=== PATIENT | male | born 1985 | race Caucasian/White ===

== ENCOUNTER 2017-05-22 02:44 | Inpatient (IN) | payer OTHER ==
[2017-05-22] MEDS ORDERED: Maalox 30 mL Cup ONE (03:06)
[2017-05-22] MEDS ORDERED: Maalox 30 mL Cup PO ONE (03:13)
[2017-05-22] MEDS ORDERED: Sodium Chloride 0.9% 1,000 ML IV ONE ×3 (03:13→05:13)
[2017-05-22 03:25] LABS: MANUAL DIFF REQUIRED? YES
[2017-05-22 03:27] LABS: URINE MICROSCOPIC INDICATED? YES; URINE SOURCE MIDSTREAM
[2017-05-22 03:29] LABS: URINE BILIRUBIN NEGATIVE (NEGATIVE); URINE BLOOD LARGE (NEGATIVE); URINE GLUCOSE (UA) NEGATIVE (NEGATIVE); URINE KETONE 15 mg/dL (NEGATIVE); URINE LEUKOCYTE ESTERASE NEGATIVE (NEGATIVE); URINE NITRATE NEGATIVE (NEGATIVE); URINE PH 6.5 (4.6 - 8.0); URINE PROTEIN NEGATIVE (NEGATIVE); URINE UROBILINOGEN 0.2 E.U./dL (0.2 - 1.0)
[2017-05-22 03:36] LABS: HEMATOCRIT 47.9 % (41.0-60); MEAN CELL VOLUME 85.4 fl (80-99); MEAN CORPUSCULAR HEMOGLOBIN 28.5 pg (26.0-30.0); MEAN CORPUSCULAR HGB CONC 33.4 pg (28.0-36.0); PLATELET COUNT 247 Th/cmm (150-400); RED BLOOD COUNT 5.61 Mil/cmm (4.30-5.70); RED CELL DISTRIBUTION WIDTH 13.8 % (11.5-20.0); WHITE BLOOD COUNT 11.9 Th/cmm (4.8-10.8)
[2017-05-22 03:37] LABS: URINE CLARITY CLEAR (CLEAR); URINE COLOR YELLOW
[2017-05-22 03:41] LABS: URINE WBC 0-2 /hpf (0-5)
[2017-05-22 03:42] LABS: URINE BACTERIA NONE SEEN /hpf (NONE SEEN); URINE EPITHELIAL CELLS RARE /lpf (FEW)
[2017-05-22 03:45] LABS: ALB/GLOB RATIO 1.2 (1.0-1.8); ALBUMIN 4.4 gm/dL (4.2-5.5); ALKALINE PHOSPHATASE 61 U/L (34-104); ANION GAP 14.4 (7.0-16.0); BUN - UREA NITROGEN 15 mg/dL (7-25); CALCIUM SERUM 9.6 mg/dL (8.6-10.3); CARBON DIOXIDE 25.2 mEq/L (21.0-31.0); CHLORIDE 102 mEq/L (98-107); CREATININE - SERUM 1.2 mg/dL (0.7-1.3); GFR AFRICAN-AMERICAN > 60.0 ml/min (>90); GFR NON AFRICAN-AMERICAN > 60.0 ml/min; GLUCOSE 131 mg/dL (70-105); LIPASE 19 U/L (11-82); POTASSIUM SERUM 3.6 mEq/L (3.5-5.1); SGOT 26 U/L (13-39); SGPT/ALT 49 U/L (7-52); SODIUM SERUM 138 mEq/L (136-145); TOTAL PROTEIN,SERUM 8.1 gm/dL (6.0-8.3)
[2017-05-22 03:56] LABS: BAND NEUTROPHILE 12 % (0-10); LYMPHOCYTE 3 % (20-50); NEUTROPHILS 84 % (40-80); PLATELET ESTIMATE ADEQUATE (NORMAL); TOTAL CELLS COUNTED 100
[2017-05-22] MEDS ORDERED: cefTRIAXone 1 GM in Sodium Chloride 0.9% 50 ML IV ONE (05:11)
--- NOTE | 2017-05-22 06:00 | ED Physician Chart ---
ED Chief Complaint/HPI - Patient Information Date Seen:: 05/22/17 Time Seen:: 03:00 Chief Complaint:: Abdominal Pain History of Present Illness:: onset since 5pm last night after eating at a restaurant of diffuse, crampy abdominal pain with N/V/D x 20= episodes and decreased urination, fever, and chills; pt denies trauma, H/As, S/T, neck pain, cough, C/P, SOB,or urinary s/s Allergies:: Allergies Allergy/AdvReac Type Severity Reaction Status Date / Time No Known Allergies Allergy Verified 05/22/17 03:08 Vitals:: Vital Signs - 8 hr 05/22/17 05/22/17 05/22/17 03:00 04:00 05:20 Temp 101.3 F 102.1 F 101.7 F HR 125 125 114 RR 18 17 18 BP 131/93 122/76 114/72 O2 Sat % 95 98 96 Historian:: Patient, Family Member Review:: Nurse's Note Reviewed ED Review of Systems - Review of Systems General/Constitutional: Fever, Chills, No weight loss, No weakness, No diaphoresis, No edema, No loss of appetite Skin: Skin lesions, No rash, No bruising Head: No headache, No light-headedness Eyes: No loss of vision, No pain, No diplopia ENT: No earache, No nasal drainage, No sore throat, No tinnitus Neck: No neck pain, No swelling, No thyromegaly, No stiffness, No mass noted Cardio Vascular: No chest pain, No palpitations, No PND, No orthopnea, No edema Pulmonary: No SOB, No cough, No sputum, No wheezing GI: Nausea, Vomiting, Diarrhea, Pain, No melena, No hematochezia, No constipation, No hematemesis G/U: No dysuria, No frequency, No hematuria, No nacturia Musculoskeletal: No bone or joint pain, No back pain, No muscle pain Endocrine: No polyuria, No polydipsia Psychiatric: No prior psych history, No depression, No anxiety, No suicidal ideation, No homicidal ideation, No auditory hallucination, No visual hallucination Hematopoietic: No bruising, No lymphadenopathy Allergic/Immuno: No urticaria, No angioedema Neurological: No syncope, No focal symptoms, No weakness, No paresthesia, No headache, No seizure, No dizziness, No confusion, No vertigo ED Past Medical History - Past Medical History Obtainable: Yes Past Medical History: Arthritis Family History: None Social History: Non Smoker, No Alcohol, No Drug Use, Surgical History: None Psychiatricy History: None Medication: Reviewed Family Medical History - Family Member Mother History Unknown: Yes ED Physical Exam - Physical Examination General/Constitutional: Awake, Well-developed, well-nourished, Alert, No distress, GCS 15, Non-toxic appearing, Ambulatory Head: Atraumatic Eyes: Lids, conjuctiva normal, PERRL, EOMI Skin: Nl inspection, No rash, No skin lesions, No ecchymosis, No lymphadenopathy Other Skin comments:: Poor Turgor with dry mucous membranes ENMT: External ears, nose nl, Nasal exam nl, Lips, teeth, gums nl Neck: Nontender, Full ROM w/o pain, No JVD, No nuchal rigidity, No bruit, No mass, No stridor Respiratory: Nl effort/Exclusion, Clear to Auscultation, No Wheeze/Rhonchi/Rales Cardio Vascular: RRR, No murmur, gallop, rubs, NL S1 S2, Carotid/Femoral/Distal pulses equal bilaterally GI: No organomegaly, No hernia, Normal BS's, Nondistended, No mass/bruits, No McBurney tenderness Other GI comments:: + diffuse tenderness : No CVA tenderness Extremities: No tenderness or effusion, Full ROM, normal strength in all extremities, No edema, Normal digits & nails Neuro/Psych: Alert/oriented, DTR's symmetric, Normal sensory exam, Normal motor strength, Judgement/insight normal, Mood normal, Normal gait, No focal deficits Misc: Normal back, No paraspinal tenderness ED Labs/Radiology/EKG Results - Lab Results Results: Laboratory Tests 05/22/17 05/22/17 05/22/17 03:15 03:15 03:15 WBC 11.9 H RBC 5.61 Hgb 16.0 Hct 47.9 MCV 85.4 MCH 28.5 MCHC Differential 33.4 RDW 13.8 Plt Count 247 MPV 9.0 Band Neutrophils % 12 H Neutrophils (Manual) 84 H Lymphocytes 3 L Platelet Estimate ADEQUATE Sodium 138 Potassium 3.6 Chloride 102 Carbon Dioxide 25.2 Anion Gap 14.4 BUN 15 Creatinine 1.2 Est GFR ( Amer) > 60.0 Est GFR (Non-Af Amer) > 60.0 BUN/Creatinine Ratio 12.5 Glucose 131 H Whole Bld Lactic Acid Uric Acid 10.2 H Calcium 9.6 Total Bilirubin 1.0 AST 26 ALT 49 Alkaline Phosphatase 61 Total Protein 8.1 Albumin 4.4 Globulin 3.7 Albumin/Globulin Ratio 1.2 Lipase 19 Urine Source Urine Color Urine Clarity Urine pH Ur Specific [place] Urine Protein Urine Glucose (UA) Urine Ketones Urine Blood Urine Nitrate Urine Bilirubin Urine Urobilinogen Ur Leukocyte Esterase Urine RBC Urine WBC Ur Epithelial Cells Urine Bacteria 05/22/17 05/22/17 03:15 03:20 WBC RBC Hgb Hct MCV MCH MCHC Differential RDW Plt Count MPV Band Neutrophils % Neutrophils (Manual) Lymphocytes Platelet Estimate Sodium Potassium Chloride Carbon Dioxide Anion Gap BUN Creatinine Est GFR ( Amer) Est GFR (Non-Af Amer) BUN/Creatinine Ratio Glucose Whole Bld Lactic Acid 3.04 H* Uric Acid Calcium Total Bilirubin AST ALT Alkaline Phosphatase Total Protein Albumin Globulin Albumin/Globulin Ratio Lipase Urine Source [place] Urine Color YELLOW Urine Clarity CLEAR Urine pH 6.5 Ur Specific [place] 1.010 Urine Protein NEGATIVE Urine Glucose (UA) NEGATIVE Urine Ketones 15 H Urine Blood LARGE H Urine Nitrate NEGATIVE Urine Bilirubin NEGATIVE Urine Urobilinogen 0.2 Ur Leukocyte Esterase NEGATIVE Urine RBC 5-10 H Urine WBC 0-2 Ur Epithelial Cells RARE Urine Bacteria NONE SEEN Comments:: WBC: 11.9; LA: 3.04; UA: 10.2;; U/A: + Blood and RBCs; - Radiology Results Comments:: + Infectious, inflammatory Gastroenteritis - EKG Interpretations EKG Time:: 05:32 Rate & Rhythm: 107; ST Comments:: non-specific st-t changes ED Septic Shock - . Is Septic Shock (SBP<90, OR Lactate>4 mmol\L) present?: No - <6hrs of presentation: Vital Signs: Vital Signs - 8 hr 05/22/17 05/22/17 05/22/17 03:00 04:00 05:20 Temp 101.3 F 102.1 F 101.7 F HR 125 125 114 RR 18 17 18 BP 131/93 122/76 114/72 O2 Sat % 95 98 96 ED Reassessment (Disposition) - Reassessment Reassessment Condition:: Improved - Diagnosis Diagnosis:: Acute Gastroenteritis; Gastritis; Abdominal Pain; N/V/D; Dehydration; Hematuria ; Leukocytosis; Sepsis; Tachycardia - Aftercare/Follow up Instructions Aftercare/Follow-Up Instructions:: Counseled pt regarding lab results/diagnosis & need follow up, Counseled pt & family regarding lab results/diagnosis & need follow up - Patient Disposition Discharge/Transfer:: Acute Care w/in this hosp Accepting Physician:: Dr. Dalal Time Called:: 0500 Time Responded:: 05:00 Admitted to:: Telemetry Spoke to:: Dr. Dalal Admitting Medical Physician:: Dr. Dalal Condition at Disposition:: Stable, Improved
[2017-05-22] MEDS ORDERED: Piperacillin Sodium/Tazobact 3.375 gm Vial IV ONE (06:45)
[2017-05-22] MEDS ORDERED: HYDROmorphone 1 mg/mL 1mL Syr IVP PRN (07:35)
[2017-05-22] MEDS ORDERED: HYDROmorphone 1 mg/mL 1mL Syr ONE (07:46)
[2017-05-22] MEDS: D5-0.9%NS 1,000 ML IV SCH ×2 (08:16→20:58)
--- NOTE | 2017-05-22 09:09 | Diagnostic Imaging Report ---
CT abdomen and pelvis without intravenous contrast Indication: Abdominal pain, vomiting, diarrhea Comparison: None, Technique: Axial images were obtained from the lung bases to the bilateral proximal femurs without IV contrast. Coronal reconstructions were made. total DLP: 746, CTDI11.8 FINDINGS: There is a 3 mm calcified granuloma of the right lung base. Hypoventilatory and atelectatic changes of the lungs are noted. Evaluation of the solid organs is limited due to lack of IV contrast. There is fatty infiltration of the liver. No evidence of focal lesions. No focal splenic lesions. Mildly prominent spleen is noted. The no focal pancreatic lesions. Slight haziness of the pancreatic margins are noted. Borderline prominent peripancreatic and periportal lymph nodes are noted. No focal adrenal lesions. No hydronephrosis or nephrolithiasis. Multiple fluid-filled loops of small and large bowel are noted. The appendix is not visualized. The osseous structures demonstrate no acute abnormalities. Mild degenerative changes of the spine are noted. IMPRESSION: Multiple fluid filled loops of small and large bowel which may be due to inflammatory process/enteritis. Clinical correlation recommended. Slight haziness along the pancreatic margins. Inflammatory process cannot be excluded. Please correlate with clinical findings and laboratory values. Borderline prominent periportal and peripancreatic lymph nodes are noted, nonspecific, however correlation with old exams and short-term follow-up surveillance is recommended. Diffuse fatty infiltration of the liver. 3 mm calcified granuloma right lung base.
[2017-05-22] MEDS: Pantoprazole 40 mg EC Tab PO SCH (09:14)
[2017-05-22] MEDS ORDERED: Morphine Sulfate 4 mg/mL 1mL Syr IVP PRN (11:07)
[2017-05-22] MEDS ORDERED: Probiotic Screen MC PRN (12:00)
[2017-05-22] MEDS: metroNIDAZOLE 500mg/NS 100mL 500 MG/100 ML BAG IV SCH ×2 (12:09→20:56)
--- NOTE | 2017-05-22 15:32 | History & Physical ---
ADMIT DATE: 05/22/2017 CHIEF COMPLAINT: The patient came in because of nausea and vomiting. HISTORY OF PRESENT ILLNESS: This is a 31-year-old Samoan with past medical history, possibly gout, who came in because of persistent nausea and vomiting. One day prior to admission, he ate ____ for breakfast. He continued to eat some leftover for lunch. A few hours prior to admission, he felt nauseous. Then he started vomiting an hour later. This was associated with watery diarrhea. His vomiting persisted. He could not take anything orally, both solids and liquids. He felt weak, tired with easy fatigability. He has noted a decrease in his urinary output. He then proceeded to the Emergency Room. His temperature was 101.3 with a white count of 11.9 and lactic acid of 3.04. CT scan of the abdomen revealed inflammatory/enteritis. He denied any hematemesis, blood/mucus in the stool. PAST MEDICAL HISTORY: 1. Questionable history of gout. 2. Renal calculi. CURRENT MEDICATIONS: Acetaminophen, metronidazole, morphine sulfate, ondansetron, pantoprazole, temazepam, Zosyn. ALLERGIES: No known drug allergies. SOCIAL HISTORY: No history of alcohol or tobacco use. He is currently self-employed. FAMILY HISTORY: Father had a history of colon cancer. On the mother's side, there is history of diabetes, hypertension. REVIEW OF SYSTEMS: GENERAL: He did complain of progressive weakness, appetite had declined due to his nausea and vomiting and diarrhea. He did have fever. HEENT: No mention of headaches, no dizziness. CARDIORESPIRATORY: No history of hypertension. No shortness of breath, chest pain, palpitations, diaphoresis, cough. GASTROINTESTINAL: He came in because of persistent nausea and vomiting as well as watery diarrhea. This was associated with some abdominal cramping. However, he does not have any history of constipation. GENITOURINARY: History of kidney stones in the past, but no dysuria, no hematuria. MUSCULOSKELETAL: No arthralgias. ENDOCRINE: No history of diabetes, no thyroid abnormalities. NEUROPSYCHIATRIC: No syncopal episode or seizure activity. PHYSICAL EXAMINATION: GENERAL: The patient is alert, verbal, comfortable. VITAL SIGNS: His blood pressure is 118/81, pulse is tachycardic at 115, temperature 99.4 degrees. SKIN: Poor turgor, warm, no rash, no jaundice appreciated. HEENT: Head normocephalic, atraumatic. Eyes: Extraocular muscles intact. Pupils equal, round, reactive to light and accommodates. Anicteric sclerae. Pale conjunctivae. Nose, midline nasal septum. Mouth: Dry mucosa with adequate dentition. NECK: Supple, no adenopathy, no thyromegaly, no bruits. Trachea palpated in the midline. CHEST AND CVS: S1, S2. No rub, murmur or gallop appreciated. Point of maximal impulse fifth intercostal space, left midclavicular line. No abdominal or femoral bruits appreciated. LUNGS: Equal expansion. No use of accessory muscles. No supraclavicular retractions. Decreased breath sounds, clear to auscultation without any wheeze. ABDOMEN: Globular, soft, tympanitic, tympanitic sounds, no tenderness on palpation, remains soft. MUSCULOSKELETAL: No presence of effusions in his joints with adequate range of motion. EXTREMITIES: No evidence of any edema, cyanosis, clubbing with palpable femoral, popliteal and dorsalis pedis pulses. NEUROLOGIC: The patient is alert, verbal, motor is 5/5. Cranial nerves 2-12 intact. Sensory intact. IMPRESSION: 1. Intractable nausea and vomiting with watery diarrhea, possible acute inflammatory/infectious (viral/bacterial) gastroenteritis. 2. NAFLD. 3. Incidental finding of right lung granuloma. 4. History of renal calculi. 5. Dehydration. PLAN: 1. Continue with IV fluids. 2. Antibiotics. 3. Blood culture x2. 4. There is a stool for OB as well as white count. 5. GI consult. 6. ID consult. 7. Stool workup. JOB# [id number]
--- NOTE | 2017-05-22 16:59 | Consultation ---
Consult Note - Consult Note Service Date: 05/22/17 Referring Physician: Maryanne Dalal Consult Note: PHYSICIAN Consultation Note: Date of Admission: 05/22/17 Purpose of Consultation: Gastroenteritis. Chief Complaint: Patient SHOAIB SINGH was admitted to location Intensive Care Unit with SEPSIS,INFECTIOUS/INFLAMMATORY ENTERITIS. History of Present Illness: 31-year-old male with history of gout taking colchicine, had developed nausea, vomiting followed by watery diarrhea 12 hrs after eating [place] food at home in morning. The food was cooked night before and frozen refrigerator. He warmed the food. On initial evaluation, his temperature was 101.3 degree F and WBC count was 11k. Stool for WBC and shiga toxin came negative. Other stool studies are pending. He was also tachycardic. He was admitted to the ICU and ID consult was called for antibiotic management. Overall, he is improving. Past Medical History: Gout, Obesity. Allergies Allergy/AdvReac Type Severity Reaction Status Date / Time No Known Allergies Allergy Verified 05/22/17 03:08 Vital Signs Temp 99.2 F 05/22/17 12:00 Pulse 115 05/22/17 12:00 Resp 21 05/22/17 12:00 BP 125/87 05/22/17 12:00 Pulse Ox 95 05/22/17 12:00 Intake & Output 05/21/17 05/22/17 05/22/17 18:59 06:59 18:59 Intake Total 200 200 Balance 200 200 Weight (lbs) 113.398 kg Intake: Intake, IV Amount 100 200 Piperacillin Sodium/ 100 Tazobact 2.25 gm In Sodium Chloride 0.9% 50 ml @ 100 mls/hr IV Q8HR [facility] Rx#:[id number] cefTRIAXone 1 gm In 50 Sodium Chloride 0.9% 50 ml @ 100 mls/hr IV X1 ONE Rx#:[id number] metroNIDAZOLE 500mg/NS 100 100mL 500 mg In 100 ml @ 100 mls/hr IV Q8HR [facility] Rx #:[id number] Oral 100 Laboratory Results - last 24 hr 05/22/17 05/22/17 06:00 07:15 Whole Bld Lactic Acid 2.65 H* Stool Leukocyte NO WBC SEEN Home Medication Medication Instructions Recorded Type NK [No Home Meds] 05/22/17 History Current Medications Generic Name Dose Route Start Last Admin Trade Name Freq PRN Reason Stop Dose Admin Acetaminophen 650 mg 05/22/17 06:04 Tylenol PO 07/21/17 06:14 Q4H PRN Pain or Fever >101 Dextrose/Sodium Chloride 1,000 mls @ 125 mls/hr 05/22/17 06:15 05/22/17 08:16 D5-0.9%Ns IV 07/21/17 06:14 125 mls/hr .Q8H DYLAN Administration Metronidazole 500 mg in 100 mls @ 100 mls/hr 05/22/17 13:00 05/22/17 13:10 Flagyl IV 07/21/17 12:59 Infused Q8HR DYLAN Infusion Piperacillin Sod/Tazobactam 50 mls @ 100 mls/hr 05/22/17 13:00 05/22/17 14:10 Sod 2.25 gm/ Sodium Chloride IV 07/21/17 12:59 Infused Q8HR DYLAN Infusion Lactobacillus Rhamnosus 1 each 05/23/17 09:00 Culturelle 15b PO 07/22/17 08:59 DAILY DYLAN Miscellaneous 1 ea 05/22/17 12:00 Probiotic Screen MC 07/21/17 11:59 PRN PRN PROTOCOL Morphine Sulfate 2 mg 05/22/17 11:07 Morphine IVP 07/21/17 11:06 Q3HR PRN Severe Pain Ondansetron HCl 4 mg 05/22/17 06:04 Zofran IV 07/21/17 06:14 Q4H PRN Nausea Pantoprazole Sodium 40 mg 05/22/17 09:00 05/22/17 09:14 Protonix PO 07/21/17 08:59 40 mg DAILY DYLAN Administration Temazepam 15 mg 05/22/17 06:04 Restoril PO 07/21/17 06:03 HS PRN Insomnia Protocol Review of Systems: A 12 point ROS was reviewed with the pertinent positive and negatives noted in the HPI. Social History Lives at home, no history of smoking, alcohol or drug use. Family Medical History None. Physical Exam: General: Comfortable, not in acute distress, WN WD BMI 41. HEENT: Head NC NT. Oral cavity: moist and pink, Eyes: no pallor no icterus. pupil PERRLA,. Neck: Supple, no JVD, no Carotid bruit. Cardio: S1 and S2 WNL, no murmur, no gallop; Respiratory: Vesicular breath sounds, no crackles, no wheezing. Abdominal: Soft NT ND BS present. Genital/Urinary: deferred Extremities: NCCE. paulse are palpable in all 4 limbs. Neurological: Alert awake oriented times 3, no focal neurodeficit. Assessment: 1. Fever 2/2 gastro enteritis. 2. Gastroenteritis? viral versu bacterial. 3. Diarrhea. 4. H/o gout. Plan: Change antibiotic zosyn to levaquin po, if he tolerates soft food may change flagyl to po. May consider dc home in next one or two days if remains afebrile on oral levaquin po for total 10 days. Thank you, Dr Dalal for involving me in taking care of Me Cirilo. DW patient and RN. Signed, Lonnie Sanchez M.D. 05/22/[id number]
--- NOTE | 2017-05-22 17:08 | Consultation ---
DATE OF CONSULTATION: 05/22/2017 INPATIENT GI CONSULTATION CONSULTING PHYSICIAN: Dr. Dalal. REASON FOR CONSULTATION: Enteritis, nausea and vomiting, diarrhea. HISTORY OF PRESENT ILLNESS: The patient is a 31-year-old male with past medical history significant for gout, who comes into the hospital with sudden onset nausea, vomiting, and diarrhea since last night. The patient reports having [place]ian food, possibly clams in the morning and that he also had some ham in the midday. His symptoms began 06:00 p.m. all of a sudden and consisted of massive amounts of diarrhea, nausea, and vomiting. He was having such severe symptoms that were unrelenting he decided to report to the ER for this. Since his admission to the hospital, he has since had resolution in his nausea, but he is still having some diarrhea. He does not report any abdominal pain at this time. A preliminary CT report shows enteritis and fluid-filled loops of bowel, but no other pathology. At the current time, he is starting to feel improved. PAST MEDICAL HISTORY: Gout. PAST SURGICAL HISTORY: The patient denies any previous abdominal surgeries. FAMILY HISTORY: Noncontributory. SOCIAL HISTORY: The patient does not smoke or drink. ALLERGIES: No known drug allergies. REVIEW OF SYSTEMS: A 12-point review of systems was performed with the patient and is negative other than the pertinent positives mentioned with the history of present illness. CURRENT MEDICATIONS: Include Tylenol, hydromorphone as needed, Flagyl, ondansetron, Protonix, Zosyn, Restoril. PHYSICAL EXAMINATION: VITAL SIGNS: Blood pressure is 114/72, pulse 105 beats per minute, temperature 101.7, respiratory rate is 16, and oxygenation 97%. GENERAL: This patient is lying flat in bed. He is alert and oriented x 3. He appears in mild distress. HEAD, EARS, EYES, NOSE AND THROAT: Normocephalic and atraumatic appearing head. Pupils are equal and reactive to light. Extraocular muscles are intact with moist mucous membranes. NECK: Supple. No JVD, thyromegaly, or lymphadenopathy. CHEST: Clear to auscultation bilaterally. CARDIOVASCULAR: S1 and S2 are present, tachycardic. ABDOMEN: Obese, soft, nontender to palpation. No guarding or rebound. No distention. EXTREMITIES: Nonpitting edema is noted bilaterally. Pulses are present. SKIN: No obvious jaundice or cyanosis. LABORATORY DATA: White blood cell count is 11.9, hemoglobin is 16.0, and platelets are estimated to be adequate. Sodium 138, BUN 15, creatinine 1.2. Lactic acid was 3.04 on admission, now 2.65. Total bilirubin 1, AST 26, ALT 49, lipase 19. IMAGING: Preliminary abdominal CT shows enteritis of the small bowel as well as steatosis of the liver. IMPRESSION: This is a 31-year-old male with past medical history significant for gout, who is admitted to the hospital with sudden onset nausea, vomiting, and diarrhea after eating [place] food, possibly clams. 1. Enteritis. 2. Nausea and vomiting. 3. Diarrhea. 4. Leukocytosis. 5. Lactic acidosis. DISCUSSION: Most likely, this is an infectious enteritis, possibly toxin mediated from eating food contaminated with bacteria; additionally, this could be a viral enteritis as well. Less likely are inflammatory bowel disease or any sort of GI malignancy at this point. RECOMMENDATIONS: 1. Continue with fluid hydration. We can give the patient clears if he is thirsty and wants to try eating. 2. Agree with antibiotics. The patient will need a 7-day course total. 3. We will follow up the stool samples that have been collected and make sure that he also has ordered ova and parasites as well as Vibrio exam if this is available here. 4. Advance his diet as tolerated to full liquids today and if he is doing very well with this, we can consider soft foods. Thank you for allowing me to participate in the care of this patient. Please call with any further questions. [facility]# [id number]
[2017-05-23] MEDS: metroNIDAZOLE 500mg/NS 100mL 500 MG/100 ML BAG IV SCH ×3 (05:20→21:02)
[2017-05-23] MEDS: Pantoprazole 40 mg EC Tab PO SCH (09:13)
[2017-05-23] MEDS: Lactobacillus Rhamnosus GG 15 Billion CFU CAP.SPRINK PO SCH (09:13)
--- NOTE | 2017-05-23 10:36 | GI Progress Note ---
Subjective - Review of Systems Service Date: 05/23/17 Subjective: Diarreha is less, nausea is less but still present Objective - Results Result Diagrams: 05/22/17 03:15 05/22/17 03:15 Recent Labs: Laboratory Last Values WBC 11.9 Th/cmm (4.8-10.8) H 05/22/17 03:15 RBC 5.61 Mil/cmm (4.30-5.70) 05/22/17 03:15 Hgb 16.0 gm/dL (12-16) 05/22/17 03:15 Hct 47.9 % (41.0-60) 05/22/17 03:15 MCV 85.4 fl (80-99) 05/22/17 03:15 MCH 28.5 pg (26.0-30.0) 05/22/17 03:15 MCHC Differential 33.4 pg (28.0-36.0) 05/22/17 03:15 RDW 13.8 % (11.5-20.0) 05/22/17 03:15 Plt Count 247 Th/cmm (150-400) 05/22/17 03:15 MPV 9.0 fl 05/22/17 03:15 Band Neutrophils % 12 % (0-10) H 05/22/17 03:15 Neutrophils (Manual) 84 % (40-80) H 05/22/17 03:15 Lymphocytes 3 % (20-50) L 05/22/17 03:15 Platelet Estimate ADEQUATE (NORMAL) 05/22/17 03:15 Sodium 138 mEq/L (136-145) 05/22/17 03:15 Potassium 3.6 mEq/L (3.5-5.1) 05/22/17 03:15 Chloride 102 mEq/L (98-107) 05/22/17 03:15 Carbon Dioxide 25.2 mEq/L (21.0-31.0) 05/22/17 03:15 Anion Gap 14.4 (7.0-16.0) 05/22/17 03:15 BUN 15 mg/dL (7-25) 05/22/17 03:15 Creatinine 1.2 mg/dL (0.7-1.3) 05/22/17 03:15 Est GFR ( Amer) > 60.0 ml/min (>90) 05/22/17 03:15 Est GFR (Non-Af Amer) > 60.0 ml/min 05/22/17 03:15 BUN/Creatinine Ratio 12.5 05/22/17 03:15 Glucose 131 mg/dL (70-105) H 05/22/17 03:15 Whole Bld Lactic Acid 2.65 mmol/L (0.60-1.99) H* 05/22/17 06:00 Uric Acid 10.2 mg/dL (4.4-7.6) H 05/22/17 03:15 Calcium 9.6 mg/dL (8.6-10.3) 05/22/17 03:15 Total Bilirubin 1.0 mg/dL (0.3-1.0) 05/22/17 03:15 AST 26 U/L (13-39) 05/22/17 03:15 ALT 49 U/L (7-52) 05/22/17 03:15 Alkaline Phosphatase 61 U/L (34-104) 05/22/17 03:15 Total Protein 8.1 gm/dL (6.0-8.3) 05/22/17 03:15 Albumin 4.4 gm/dL (4.2-5.5) 05/22/17 03:15 Globulin 3.7 gm/dL 05/22/17 03:15 Albumin/Globulin Ratio 1.2 (1.0-1.8) 05/22/17 03:15 Lipase 19 U/L (11-82) 05/22/17 03:15 Urine Source MIDSTREAM 05/22/17 03:20 Urine Color YELLOW 05/22/17 03:20 Urine Clarity CLEAR (CLEAR) 05/22/17 03:20 Urine pH 6.5 (4.6 - 8.0) 05/22/17 03:20 Ur Specific [place] 1.010 (1.005-1.030) 05/22/17 03:20 Urine Protein NEGATIVE mg/dL (NEGATIVE) 05/22/17 03:20 Urine Glucose (UA) NEGATIVE mg/dL (NEGATIVE) 05/22/17 03:20 Urine Ketones 15 mg/dL (NEGATIVE) H 05/22/17 03:20 Urine Blood LARGE (NEGATIVE) H 05/22/17 03:20 Urine Nitrate NEGATIVE (NEGATIVE) 05/22/17 03:20 Urine Bilirubin NEGATIVE (NEGATIVE) 05/22/17 03:20 Urine Urobilinogen 0.2 E.U./dL (0.2 - 1.0) 05/22/17 03:20 Ur Leukocyte Esterase NEGATIVE (NEGATIVE) 05/22/17 03:20 Urine RBC 5-10 /hpf (0-5) H 05/22/17 03:20 Urine WBC 0-2 /hpf (0-5) 05/22/17 03:20 Ur Epithelial Cells RARE /lpf (FEW) 05/22/17 03:20 Urine Bacteria NONE SEEN /hpf (NONE SEEN) 05/22/17 03:20 Stool Leukocyte NO WBC SEEN 05/22/17 07:15 - Physical Exam Vitals and I&O: Vital Signs Temp 98.2 F 05/23/17 04:00 Pulse 93 05/23/17 04:00 Resp 16 05/23/17 04:00 BP 106/67 05/23/17 04:00 Pulse Ox 94 05/23/17 04:00 Intake & Output 05/22/17 05/23/17 05/23/17 18:59 06:59 18:59 Intake Total 1200 1660 Output Total 1100 Balance 1200 560 Weight (lbs) 114.305 kg Intake: Intake, IV Amount 1200 100 D5-0.9%Ns 1,000 ml @ 125 1000 mls/hr IV .Q8H [facility] Rx#: [id number] Piperacillin Sodium/ 100 Tazobact 2.25 gm In Sodium Chloride 0.9% 50 ml @ 100 mls/hr IV Q8HR [facility] Rx#:[id number] metroNIDAZOLE 500mg/NS 100 100 100mL 500 mg In 100 ml @ 100 mls/hr IV Q8HR [facility] Rx #:[id number] Oral 1560 Output: Urine 1100 Other: # Voids 2 # Bowel Movements 2 Stool Characteristics Liquid Liquid Brown Brown Active Medications: Current Medications Acetaminophen (Tylenol) 650 mg PO Q4H PRN PRN Reason: Pain or Fever >101 Stop: 07/21/17 06:14 Dextrose/Sodium Chloride (D5-0.9%Ns) 1,000 mls @ 125 mls/hr IV .Q8H [facility] Stop: 07/21/17 06:14 Last Admin: 05/22/17 20:58 Dose: 125 mls/hr Metronidazole (Flagyl) 500 mg in 100 mls @ 100 mls/hr IV Q8HR [facility] Stop: 07/21/17 12:59 Last Infusion: 05/22/17 21:59 Dose: Infused Lactobacillus Rhamnosus (Culturelle 15b) 1 each PO DAILY [facility] Stop: 07/22/17 08:59 Last Admin: 05/23/17 09:13 Dose: 1 each Levofloxacin (Levaquin) 500 mg PO DAILY [facility] Stop: 07/22/17 08:59 Last Admin: 05/23/17 09:12 Dose: 500 mg Miscellaneous (Probiotic Screen) 1 ea [facility] PRN PRN PRN Reason: PROTOCOL Stop: 07/21/17 11:59 Morphine Sulfate (Morphine) 2 mg IVP Q3HR PRN PRN Reason: Severe Pain Stop: 07/21/17 11:06 Last Admin: 05/22/17 20:53 Dose: 2 mg Ondansetron HCl (Zofran) 4 mg IV Q4H PRN PRN Reason: Nausea Stop: 07/21/17 06:14 Last Admin: 05/22/17 20:54 Dose: 4 mg Pantoprazole Sodium (Protonix) 40 mg PO DAILY [facility] Stop: 07/21/17 08:59 Last Admin: 05/23/17 09:13 Dose: 40 mg Temazepam (Restoril) 15 mg PO HS PRN; Protocol PRN Reason: Insomnia Stop: 07/21/17 06:03 General: Alert, Oriented x3 Lungs: Clear to auscultation Abdomen: Bowel sounds, Soft, no Tender, no Hepatomegaly, no Distended, no Rebound, no Mass, no Guarding Assessment/Plan - Assessment Assessment: # Enteritis # Nausea/vomiting # Diarrhea Likely infectious source, slowly improving symptomatically. Plan: - cont abx, will need 7-10 day course - advance diet to soft today as tolerated - f/u stool cultures, shiga is negative thus far
[2017-05-23 11:36] LABS: % EOSINOPHILS 3.1 % (0.0-5.0); RED CELL DISTRIBUTION WIDTH 13.7 % (11.5-20.0)
[2017-05-23 11:38] LABS: % BASOPHILS 0.1 % (0.0-2.0); % LYMPHOCYTES 21.5 % (20.0-50.0); % MONOCYTES 10.3 % (2.0-10.0); EOSINOPHILE ABSOLUTE 0.2 Th/cmm (0.1-0.4); HEMOGLOBIN 14.2 gm/dL (12-16); LYMPHOCYTE ABSOLUTE 1.5 Th/cmm (1.5-3.0); MEAN CELL VOLUME 85.9 fl (80-99); MEAN CORPUSCULAR HGB CONC 33.7 pg (28.0-36.0); MEAN PLATELET VOLUME 8.4 fl; MONOCYTE ABSOLUTE 0.7 Th/cmm (0.3-1.0); NEUTROPHILE ABSOLUTE 4.5 Th/cmm (1.8-8.0); PLATELET COUNT 218 Th/cmm (150-400); RED BLOOD COUNT 4.89 Mil/cmm (4.30-5.70); WHITE BLOOD COUNT 6.9 Th/cmm (4.8-10.8)
[2017-05-23 11:52] LABS: ALB/GLOB RATIO 1.1 (1.0-1.8); ALBUMIN 3.7 gm/dL (4.2-5.5); ALKALINE PHOSPHATASE 45 U/L (34-104); ANION GAP 10.3 (7.0-16.0); BILIRUBIN,TOTAL 0.6 mg/dL (0.3-1.0); BUN - UREA NITROGEN 5 mg/dL (7-25); CALCIUM SERUM 8.4 mg/dL (8.6-10.3); CARBON DIOXIDE 24.5 mEq/L (21.0-31.0); CHLORIDE 102 mEq/L (98-107); GFR AFRICAN-AMERICAN > 60.0 ml/min (>90); GFR NON AFRICAN-AMERICAN > 60.0 ml/min; GLUCOSE 93 mg/dL (70-105); SGOT 27 U/L (13-39); SGPT/ALT 37 U/L (7-52); SODIUM SERUM 134 mEq/L (136-145); TOTAL PROTEIN,SERUM 7.1 gm/dL (6.0-8.3)
[2017-05-23 11:57] LABS: POTASSIUM SERUM 2.8 mEq/L (3.5-5.1)
[2017-05-23] MEDS ORDERED: Potassium Chloride 20 mEq ER Tab PO ONE ×2 (14:40→18:40)
--- NOTE | 2017-05-23 15:10 | Infectious Disease Prog Note ---
Infectious Disease Subjective - Review of Systems Service Date: 05/23/17 Subjective: There is no new change, no fever. Watery BM x1. Infectious Disease Objective - Results Result Diagrams: 05/23/17 11:29 05/23/17 11:29 Recent Labs: Laboratory Last Values WBC 6.9 Th/cmm (4.8-10.8) 05/23/17 11:29 RBC 4.89 Mil/cmm (4.30-5.70) 05/23/17 11:29 Hgb 14.2 gm/dL (12-16) 05/23/17 11:29 Hct 42.0 % (41.0-60) 05/23/17 11:29 MCV 85.9 fl (80-99) 05/23/17 11: MCH 29.0 pg (26.0-30.0) 05/23/17 11: MCHC Differential 33.7 pg (28.0-36.0) 05/23/17 11:29 RDW 13.7 % (11.5-20.0) 05/23/17 11:29 Plt Count 218 Th/cmm (150-400) 05/23/17 11:29 MPV 8.4 fl 05/23/17 11:29 Neutrophils % 65.0 % (40.0-80.0) 05/23/17 11:29 Band Neutrophils % 12 % (0-10) H 05/22/17 03:15 Lymphocytes % 21.5 % (20.0-50.0) 05/23/17 11: Monocytes % 10.3 % (2.0-10.0) H 05/23/17 11:29 Eosinophils % 3.1 % (0.0-5.0) 05/23/17 11:29 Basophils % 0.1 % (0.0-2.0) 05/23/17 11:29 Neutrophils (Manual) 84 % (40-80) H 05/22/17 03:15 Lymphocytes 3 % (20-50) L 05/22/17 03:15 Platelet Estimate ADEQUATE (NORMAL) 05/22/17 03:15 Sodium 134 mEq/L (136-145) L 05/23/17 11:29 Potassium 2.8 mEq/L (3.5-5.1) L* 05/23/17 11:29 Chloride 102 mEq/L (98-107) 05/23/17 11:29 Carbon Dioxide 24.5 mEq/L (21.0-31.0) 05/23/17 11:29 Anion Gap 10.3 (7.0-16.0) 05/23/17 11:29 BUN 5 mg/dL (7-25) L 05/23/17 11:29 Creatinine 1.0 mg/dL (0.7-1.3) 05/23/17 11:29 Est GFR ( Amer) > 60.0 ml/min (>90) 05/23/17 11:29 Est GFR (Non-Af Amer) > 60.0 ml/min 05/23/17 11:29 BUN/Creatinine Ratio 5.0 05/23/17 11: Glucose 93 mg/dL (70-105) 05/23/17 11:29 Whole Bld Lactic Acid 2.65 mmol/L (0.60-1.99) H* 05/22/17 06:00 Uric Acid 10.2 mg/dL (4.4-7.6) H 05/22/17 03:15 Calcium 8.4 mg/dL (8.6-10.3) L 05/23/17 11:29 Total Bilirubin 0.6 mg/dL (0.3-1.0) 05/23/17 11:29 AST 27 U/L (13-39) 05/23/17 11:29 ALT 37 U/L (7-52) 05/23/17 11:29 Alkaline Phosphatase 45 U/L (34-104) 05/23/17 11:29 Total Protein 7.1 gm/dL (6.0-8.3) 05/23/17 11:29 Albumin 3.7 gm/dL (4.2-5.5) L 05/23/17 11:29 Globulin 3.4 gm/dL 05/23/17 11:29 Albumin/Globulin Ratio 1.1 (1.0-1.8) 05/23/17 11:29 Lipase 19 U/L (11-82) 05/22/17 03:15 Urine Source MIDSTREAM 05/22/17 03:20 Urine Color YELLOW 05/22/17 03:20 Urine Clarity CLEAR (CLEAR) 05/22/17 03:20 Urine pH 6.5 (4.6 - 8.0) 05/22/17 03:20 Ur Specific [place] 1.010 (1.005-1.030) 05/22/17 03:20 Urine Protein NEGATIVE mg/dL (NEGATIVE) 05/22/17 03:20 Urine Glucose (UA) NEGATIVE mg/dL (NEGATIVE) 05/22/17 03:20 Urine Ketones 15 mg/dL (NEGATIVE) H 05/22/17 03:20 Urine Blood LARGE (NEGATIVE) H 05/22/17 03:20 Urine Nitrate NEGATIVE (NEGATIVE) 05/22/17 03:20 Urine Bilirubin NEGATIVE (NEGATIVE) 05/22/17 03:20 Urine Urobilinogen 0.2 E.U./dL (0.2 - 1.0) 05/22/17 03:20 Ur Leukocyte Esterase NEGATIVE (NEGATIVE) 05/22/17 03:20 Urine RBC 5-10 /hpf (0-5) H 05/22/17 03:20 Urine WBC 0-2 /hpf (0-5) 05/22/17 03:20 Ur Epithelial Cells RARE /lpf (FEW) 05/22/17 03:20 Urine Bacteria NONE SEEN /hpf (NONE SEEN) 05/22/17 03:20 Stool Leukocyte NO WBC SEEN 05/22/17 07:15 - Physical Exam Vitals and I&O: Vital Signs Temp 96.9 F 05/23/17 11:57 Pulse 93 05/23/17 11:57 Resp 17 05/23/17 12:00 BP 136/88 05/23/17 11:57 Pulse Ox 95 05/23/17 11:57 Intake & Output 05/22/17 05/23/17 05/23/17 18:59 06:59 18:59 Intake Total 1200 1760 100 Output Total 1100 Balance 1200 660 100 Weight (lbs) 114.305 kg Intake: Intake, IV Amount 1200 200 100 D5-0.9%Ns 1,000 ml @ 125 1000 mls/hr IV .Q8H [facility] Rx#: [id number] Piperacillin Sodium/ 100 Tazobact 2.25 gm In Sodium Chloride 0.9% 50 ml @ 100 mls/hr IV Q8HR [facility] Rx#:[id number] metroNIDAZOLE 500mg/NS 100 200 100 100mL 500 mg In 100 ml @ 100 mls/hr IV Q8HR [facility] Rx #:[id number] Oral 1560 Output: Urine 1100 Other: # Voids 2 # Bowel Movements 2 Stool Characteristics Liquid Liquid Liquid Brown Brown Brown Weight Source Bedscale Active Medications: Current Medications Acetaminophen (Tylenol) 650 mg PO Q4H PRN PRN Reason: Pain or Fever >101 Stop: 07/21/17 06:14 Colchicine (Colcrys) 0.6 mg PO DAILY [facility] Stop: 07/22/17 13:29 Last Admin: 05/23/17 13:02 Dose: 0.6 mg Dextrose/Sodium Chloride (D5-0.9%Ns) 1,000 mls @ 125 mls/hr IV .Q8H [facility] Stop: 07/21/17 06:14 Last Admin: 05/22/17 20:58 Dose: 125 mls/hr Metronidazole (Flagyl) 500 mg in 100 mls @ 100 mls/hr IV Q8HR [facility] Stop: 07/21/17 12:59 Last Infusion: 05/23/17 14:05 Dose: Infused Lactobacillus Rhamnosus (Culturelle 15b) 1 each PO DAILY [facility] Stop: 07/22/17 08:59 Last Admin: 05/23/17 09:13 Dose: 1 each Levofloxacin (Levaquin) 500 mg PO DAILY [facility] Stop: 07/22/17 08:59 Last Admin: 05/23/17 09:12 Dose: 500 mg Miscellaneous (Probiotic Screen) 1 ea [facility] PRN PRN PRN Reason: PROTOCOL Stop: 07/21/17 11:59 Morphine Sulfate (Morphine) 2 mg IVP Q3HR PRN PRN Reason: Severe Pain Stop: 07/21/17 11:06 Last Admin: 05/22/17 20:53 Dose: 2 mg Ondansetron HCl (Zofran) 4 mg IV Q4H PRN PRN Reason: Nausea Stop: 07/21/17 06:14 Last Admin: 05/22/17 20:54 Dose: 4 mg Pantoprazole Sodium (Protonix) 40 mg PO DAILY [facility] Stop: 07/21/17 08:59 Last Admin: 05/23/17 09:13 Dose: 40 mg Potassium Chloride (Klor-Con) 20 meq PO X1 [facility] Stop: 05/23/17 18:41 Temazepam (Restoril) 15 mg PO HS PRN; Protocol PRN Reason: Insomnia Stop: 07/21/17 06:03 General: no acute distress, well developed, well nourished HEENT: atraumatic, normocephalic, PERRLA Neck: supple, no thyromegaly Cardiovascular: S1S2, regular Lungs: clear to auscultation bilaterally, clear to percussion Abdomen: soft, no tender, no distended Extremities: lines, no cyanosis, no clubbing, no edema Neurological: awake, alert Skin: intact Infectious Disease Assmt/Plan - Assessment Assessment: 1. Fever 2/2 gastro enteritis. 2. Gastroenteritis? viral versu bacterial. 3. Diarrhea. 4. H/o gout. - Plan Plan: Continue levaquin and flagyl po,..m Nutritional Asmnt/Malnutr-PDOC - Dietary Evaluation Malnutrition Findings (Please click <Entered> for more info): Nutritional Asmnt/Malnutrition Start: 05/22/17 14: 54 Text: Status: Complete Freq: Document 05/22/17 14:55 DIAN (Rec: 05/22/17 15:07 [place] [id number]) Nutritional Asmnt/Malnutrition Patient General Information Nutritional Screening High Risk Diagnosis sepsis, infectious/ inflammatory enteritis Pertinent Medical Hx/Surgical Hx arthritis Subjective Information Pt seen lying in bed, awake and alert. Pt states no nausea but vomiting. Lunch tray came at this time. Per nurse note, pt had loss BM x 2 after lunch. Current Diet Order/ Nutrition Support clear liquid Pertinent Medications D5-0.9Ns, culturelle, protonix , piperacillin Pertinent Labs 05/22 glucose 131 Nutritional Hx/Data Height 1.65 m Height (Calculated Centimeters) 165.1 Current Weight (lbs) 113.398 kg Weight (Calculated Kilograms) 113.4 Weight (Calculated Grams) 708367.1 [place] Body Weight 136 Body Mass Index (BMI) 41.5 Recent Weight Change Yes Weight Status Morbidly Obese GI Symptoms GI Symptoms Vomitting Last BM 05/22 Skin Integrity/Comment: not indicated daryl score 22 Current %PO Negligible < 25% Estimated Nutritional Goals BEE in Kcals: Adj wt of IBW Calories/Kcals/Kg 25-30 Kcals Calculated 5064-8060 Protein: Adj wt of IBW Protein g/k.8-1 Protein Calculated 60-75 Fluid: ml 1775-2250ml (1ml/kcal) Nutritional Problem 1. Problem Problem inadequate food intake Etiology N/V, enteritis Signs/Symptoms: pt on clear liquid diet Malnutrition Alert Protein-Calorie Malnutrition N/A Is there a minimum of two criteria No selected? Query Text:Check all the applicable criteria. A minimum of two criteria are recommended for diagnosis of either severe or non-severe malnutrition. Intervention/Recommendation Comments 1. Continue with clear liquid diet as ordered. Advance diet as tolerated. 2. Monitor PO intake, wt, labs and skin integrity 3. F/U as moderate risk in 3-5 days, 05/25-05/27 Expected Outcomes/Goals Expected Outcomes/Goals 1. PO intake to meet at least 75% of nutritional needs. 2. Wt stability, skin to remain intact, labs to approach WNL.
--- NOTE | 2017-05-23 15:19 | General Progress Note ---
Subjective - Review of Systems Service Date: 05/23/17 Subjective: feels better, had 1 watery BM this am, [facility] soft Objective - Results Result Diagrams: 05/23/17 11:29 05/23/17 11:29 Recent Labs: Laboratory Last Values WBC 6.9 Th/cmm (4.8-10.8) 05/23/17 11:29 RBC 4.89 Mil/cmm (4.30-5.70) 05/23/17 11:29 Hgb 14.2 gm/dL (12-16) 05/23/17 11:29 Hct 42.0 % (41.0-60) 05/23/17 11:29 MCV 85.9 fl (80-99) 05/23/17 11: MCH 29.0 pg (26.0-30.0) 05/23/17 11: MCHC Differential 33.7 pg (28.0-36.0) 05/23/17 11:29 RDW 13.7 % (11.5-20.0) 05/23/17 11:29 Plt Count 218 Th/cmm (150-400) 05/23/17 11:29 MPV 8.4 fl 05/23/17 11:29 Neutrophils % 65.0 % (40.0-80.0) 05/23/17 11:29 Band Neutrophils % 12 % (0-10) H 05/22/17 03:15 Lymphocytes % 21.5 % (20.0-50.0) 05/23/17 11: Monocytes % 10.3 % (2.0-10.0) H 05/23/17 11:29 Eosinophils % 3.1 % (0.0-5.0) 05/23/17 11:29 Basophils % 0.1 % (0.0-2.0) 05/23/17 11:29 Neutrophils (Manual) 84 % (40-80) H 05/22/17 03:15 Lymphocytes 3 % (20-50) L 05/22/17 03:15 Platelet Estimate ADEQUATE (NORMAL) 05/22/17 03:15 Sodium 134 mEq/L (136-145) L 05/23/17 11:29 Potassium 2.8 mEq/L (3.5-5.1) L* 05/23/17 11:29 Chloride 102 mEq/L (98-107) 05/23/17 11:29 Carbon Dioxide 24.5 mEq/L (21.0-31.0) 05/23/17 11:29 Anion Gap 10.3 (7.0-16.0) 05/23/17 11:29 BUN 5 mg/dL (7-25) L 05/23/17 11:29 Creatinine 1.0 mg/dL (0.7-1.3) 05/23/17 11:29 Est GFR ( Amer) > 60.0 ml/min (>90) 05/23/17 11:29 Est GFR (Non-Af Amer) > 60.0 ml/min 05/23/17 11:29 BUN/Creatinine Ratio 5.0 05/23/17 11: Glucose 93 mg/dL (70-105) 05/23/17 11:29 Whole Bld Lactic Acid 2.65 mmol/L (0.60-1.99) H* 05/22/17 06:00 Uric Acid 10.2 mg/dL (4.4-7.6) H 05/22/17 03:15 Calcium 8.4 mg/dL (8.6-10.3) L 05/23/17 11:29 Total Bilirubin 0.6 mg/dL (0.3-1.0) 05/23/17 11:29 AST 27 U/L (13-39) 05/23/17 11:29 ALT 37 U/L (7-52) 05/23/17 11:29 Alkaline Phosphatase 45 U/L (34-104) 05/23/17 11:29 Total Protein 7.1 gm/dL (6.0-8.3) 05/23/17 11:29 Albumin 3.7 gm/dL (4.2-5.5) L 05/23/17 11:29 Globulin 3.4 gm/dL 05/23/17 11:29 Albumin/Globulin Ratio 1.1 (1.0-1.8) 05/23/17 11:29 Lipase 19 U/L (11-82) 05/22/17 03:15 Urine Source MIDSTREAM 05/22/17 03:20 Urine Color YELLOW 05/22/17 03:20 Urine Clarity CLEAR (CLEAR) 05/22/17 03:20 Urine pH 6.5 (4.6 - 8.0) 05/22/17 03:20 Ur Specific [place] 1.010 (1.005-1.030) 05/22/17 03:20 Urine Protein NEGATIVE mg/dL (NEGATIVE) 05/22/17 03:20 Urine Glucose (UA) NEGATIVE mg/dL (NEGATIVE) 05/22/17 03:20 Urine Ketones 15 mg/dL (NEGATIVE) H 05/22/17 03:20 Urine Blood LARGE (NEGATIVE) H 05/22/17 03:20 Urine Nitrate NEGATIVE (NEGATIVE) 05/22/17 03:20 Urine Bilirubin NEGATIVE (NEGATIVE) 05/22/17 03:20 Urine Urobilinogen 0.2 E.U./dL (0.2 - 1.0) 05/22/17 03:20 Ur Leukocyte Esterase NEGATIVE (NEGATIVE) 05/22/17 03:20 Urine RBC 5-10 /hpf (0-5) H 05/22/17 03:20 Urine WBC 0-2 /hpf (0-5) 05/22/17 03:20 Ur Epithelial Cells RARE /lpf (FEW) 05/22/17 03:20 Urine Bacteria NONE SEEN /hpf (NONE SEEN) 05/22/17 03:20 Stool Leukocyte NO WBC SEEN 05/22/17 07:15 - Physical Exam Vitals and I&O: Vital Signs Temp 96.9 F 05/23/17 11:57 Pulse 93 05/23/17 11:57 Resp 17 05/23/17 12:00 BP 136/88 05/23/17 11:57 Pulse Ox 95 05/23/17 11:57 Intake & Output 05/22/17 05/23/17 05/23/17 18:59 06:59 18:59 Intake Total 1200 1760 100 Output Total 1100 Balance 1200 660 100 Weight (lbs) 114.305 kg Intake: Intake, IV Amount 1200 200 100 D5-0.9%Ns 1,000 ml @ 125 1000 mls/hr IV .Q8H [facility] Rx#: [id number] Piperacillin Sodium/ 100 Tazobact 2.25 gm In Sodium Chloride 0.9% 50 ml @ 100 mls/hr IV Q8HR [facility] Rx#:[id number] metroNIDAZOLE 500mg/NS 100 200 100 100mL 500 mg In 100 ml @ 100 mls/hr IV Q8HR [facility] Rx #:[id number] Oral 1560 Output: Urine 1100 Other: # Voids 2 # Bowel Movements 2 Stool Characteristics Liquid Liquid Liquid Brown Brown Brown Weight Source Bedscale Active Medications: Current Medications Acetaminophen (Tylenol) 650 mg PO Q4H PRN PRN Reason: Pain or Fever >101 Stop: 07/21/17 06:14 Colchicine (Colcrys) 0.6 mg PO DAILY [facility] Stop: 07/22/17 13:29 Last Admin: 05/23/17 13:02 Dose: 0.6 mg Dextrose/Sodium Chloride (D5-0.9%Ns) 1,000 mls @ 125 mls/hr IV .Q8H [facility] Stop: 07/21/17 06:14 Last Admin: 05/22/17 20:58 Dose: 125 mls/hr Metronidazole (Flagyl) 500 mg in 100 mls @ 100 mls/hr IV Q8HR [facility] Stop: 07/21/17 12:59 Last Infusion: 05/23/17 14:05 Dose: Infused Lactobacillus Rhamnosus (Culturelle 15b) 1 each PO DAILY [facility] Stop: 07/22/17 08:59 Last Admin: 05/23/17 09:13 Dose: 1 each Levofloxacin (Levaquin) 500 mg PO DAILY [facility] Stop: 07/22/17 08:59 Last Admin: 05/23/17 09:12 Dose: 500 mg Miscellaneous (Probiotic Screen) 1 ea [facility] PRN PRN PRN Reason: PROTOCOL Stop: 07/21/17 11:59 Morphine Sulfate (Morphine) 2 mg IVP Q3HR PRN PRN Reason: Severe Pain Stop: 07/21/17 11:06 Last Admin: 05/22/17 20:53 Dose: 2 mg Ondansetron HCl (Zofran) 4 mg IV Q4H PRN PRN Reason: Nausea Stop: 07/21/17 06:14 Last Admin: 05/22/17 20:54 Dose: 4 mg Pantoprazole Sodium (Protonix) 40 mg PO DAILY [facility] Stop: 07/21/17 08:59 Last Admin: 05/23/17 09:13 Dose: 40 mg Potassium Chloride (Klor-Con) 20 meq PO X1 [facility] Stop: 05/23/17 18:41 Temazepam (Restoril) 15 mg PO HS PRN; Protocol PRN Reason: Insomnia Stop: 07/21/17 06:03 General: Alert, Oriented x3 HEENT: Atraumatic, EOMI, Mucous membr. moist/pink Neck: Supple, +2 carotid pulse wo bruit Cardiovascular: Regular rate, Normal S1, Normal S2 Lungs: Clear to auscultation Abdomen: Bowel sounds, Soft, no Tender, no Hepatomegaly, no Distended, no Rebound, no Mass, no Guarding Extremities: no Edema Neurological: Sensation intact Skin: no Rash Psych/Mental Status: Mood NL Assessment/Plan - Assessment Assessment: Acute Gastroenteritis (infectious) Gout? - Plan Plan: Lab - Result Diagrams 05/23/17 11:29 05/23/17 11:29 Current Medications Acetaminophen (Tylenol) 650 mg PO Q4H PRN PRN Reason: Pain or Fever >101 Stop: 07/21/17 06:14 Colchicine (Colcrys) 0.6 mg PO DAILY [facility] Stop: 07/22/17 13:29 Last Admin: 05/23/17 13:02 Dose: 0.6 mg Dextrose/Sodium Chloride (D5-0.9%Ns) 1,000 mls @ 125 mls/hr IV .Q8H [facility] Stop: 07/21/17 06:14 Last Admin: 05/22/17 20:58 Dose: 125 mls/hr Metronidazole (Flagyl) 500 mg in 100 mls @ 100 mls/hr IV Q8HR [facility] Stop: 07/21/17 12:59 Last Infusion: 05/23/17 14:05 Dose: Infused Lactobacillus Rhamnosus (Culturelle 15b) 1 each PO DAILY [facility] Stop: 07/22/17 08:59 Last Admin: 05/23/17 09:13 Dose: 1 each Levofloxacin (Levaquin) 500 mg PO DAILY [facility] Stop: 07/22/17 08:59 Last Admin: 05/23/17 09:12 Dose: 500 mg Miscellaneous (Probiotic Screen) 1 ea MC PRN PRN PRN Reason: PROTOCOL Stop: 07/21/17 11:59 Morphine Sulfate (Morphine) 2 mg IVP Q3HR PRN PRN Reason: Severe Pain Stop: 07/21/17 11:06 Last Admin: 05/22/17 20:53 Dose: 2 mg Ondansetron HCl (Zofran) 4 mg IV Q4H PRN PRN Reason: Nausea Stop: 07/21/17 06:14 Last Admin: 05/22/17 20:54 Dose: 4 mg Pantoprazole Sodium (Protonix) 40 mg PO DAILY [facility] Stop: 07/21/17 08:59 Last Admin: 05/23/17 09:13 Dose: 40 mg Potassium Chloride (Klor-Con) 20 meq PO X1 ONE Stop: 05/23/17 18:41 Temazepam (Restoril) 15 mg PO HS PRN; Protocol PRN Reason: Insomnia Stop: 07/21/17 06:03 Lab - Result Diagrams 05/23/17 11:29 05/23/17 11:29 appreciate help from all consultants on Levo, Flagyl continue antiemetic replace K Nutritional Asmnt/Malnutr-PDOC - Dietary Evaluation Malnutrition Findings (Please click <Entered> for more info): Nutritional Asmnt/Malnutrition Start: 05/22/17 14: 54 Text: Status: Complete Freq: Document 05/22/17 14:55 [email or web address] (Rec: 05/22/17 15:07 [email or web address] [id number]) Nutritional Asmnt/Malnutrition Patient General Information Nutritional Screening High Risk Diagnosis sepsis, infectious/ inflammatory enteritis Pertinent Medical Hx/Surgical Hx arthritis Subjective Information Pt seen lying in bed, awake and alert. Pt states no nausea but vomiting. Lunch tray came at this time. Per nurse note, pt had loss BM x 2 after lunch. Current Diet Order/ Nutrition Support clear liquid Pertinent Medications D5-0.9Ns, culturelle, protonix , piperacillin Pertinent Labs 05/22 glucose 131 Nutritional Hx/Data Height 1.65 m Height (Calculated Centimeters) 165.1 Current Weight (lbs) 113.398 kg Weight (Calculated Kilograms) 113.4 Weight (Calculated Grams) 749657.1 [place] Body Weight 136 Body Mass Index (BMI) 41.5 Recent Weight Change Yes Weight Status Morbidly Obese GI Symptoms GI Symptoms Vomitting Last BM 05/22 Skin Integrity/Comment: not indicated daryl score 22 Current %PO Negligible < 25% Estimated Nutritional Goals BEE in Kcals: Adj wt of IBW Calories/Kcals/Kg 25-30 Kcals Calculated 2658-2673 Protein: Adj wt of IBW Protein g/k.8-1 Protein Calculated 60-75 Fluid: ml 1775-2250ml (1ml/kcal) Nutritional Problem 1. Problem Problem inadequate food intake Etiology N/V, enteritis Signs/Symptoms: pt on clear liquid diet Malnutrition Alert Protein-Calorie Malnutrition N/A Is there a minimum of two criteria No selected? Query Text:Check all the applicable criteria. A minimum of two criteria are recommended for diagnosis of either severe or non-severe malnutrition. Intervention/Recommendation Comments 1. Continue with clear liquid diet as ordered. Advance diet as tolerated. 2. Monitor PO intake, wt, labs and skin integrity 3. F/U as moderate risk in 3-5 days, 05/25-05/27 Expected Outcomes/Goals Expected Outcomes/Goals 1. PO intake to meet at least 75% of nutritional needs. 2. Wt stability, skin to remain intact, labs to approach WNL.
[2017-05-23 21:08] LABS: A1C % 6.2 % (4.0-6.0)
[2017-05-24] MEDS: metroNIDAZOLE 500mg/NS 100mL 500 MG/100 ML BAG IV SCH ×2 (04:26→12:39)
[2017-05-24 05:16] LABS: ALB/GLOB RATIO 1.2 (1.0-1.8); ALBUMIN 3.5 gm/dL (4.2-5.5); ALKALINE PHOSPHATASE 43 U/L (34-104); ANION GAP 10.3 (7.0-16.0); BILIRUBIN,TOTAL 0.5 mg/dL (0.3-1.0); BUN - UREA NITROGEN 5 mg/dL (7-25); CALCIUM SERUM 8.8 mg/dL (8.6-10.3); CARBON DIOXIDE 26.3 mEq/L (21.0-31.0); CHLORIDE 106 mEq/L (98-107); CREATININE - SERUM 0.9 mg/dL (0.7-1.3); GFR AFRICAN-AMERICAN > 60.0 ml/min (>90); GFR NON AFRICAN-AMERICAN > 60.0 ml/min; GLUCOSE 101 mg/dL (70-105); MAGNESIUM 1.7 mg/dL (1.9-2.7); POTASSIUM SERUM 3.6 mEq/L (3.5-5.1); SGOT 26 U/L (13-39); SGPT/ALT 34 U/L (7-52); SODIUM SERUM 139 mEq/L (136-145); TOTAL PROTEIN,SERUM 6.5 gm/dL (6.0-8.3); URIC ACID 6.9 mg/dL (4.4-7.6)
[2017-05-24] MEDS ORDERED: Mag Sulfate 2gm/50mL Premix 2 GM/50 ML BAG IV ONE (08:41)
--- NOTE | 2017-05-24 09:02 | GI Progress Note ---
Subjective - Review of Systems Service Date: 05/24/17 Subjective: GI NOTE Tolerating oral diet. No N/V/D. Objective - Results Result Diagrams: 05/23/17 11:29 05/24/17 04:05 Recent Labs: Laboratory Last Values WBC 6.9 Th/cmm (4.8-10.8) 05/23/17 11:29 RBC 4.89 Mil/cmm (4.30-5.70) 05/23/17 11:29 Hgb 14.2 gm/dL (12-16) 05/23/17 11:29 Hct 42.0 % (41.0-60) 05/23/17 11:29 MCV 85.9 fl (80-99) 05/23/17 11: MCH 29.0 pg (26.0-30.0) 05/23/17 11: MCHC Differential 33.7 pg (28.0-36.0) 05/23/17 11:29 RDW 13.7 % (11.5-20.0) 05/23/17 11:29 Plt Count 218 Th/cmm (150-400) 05/23/17 11:29 MPV 8.4 fl 05/23/17 11:29 Neutrophils % 65.0 % (40.0-80.0) 05/23/17 11:29 Band Neutrophils % 12 % (0-10) H 05/22/17 03:15 Lymphocytes % 21.5 % (20.0-50.0) 05/23/17 11: Monocytes % 10.3 % (2.0-10.0) H 05/23/17 11:29 Eosinophils % 3.1 % (0.0-5.0) 05/23/17 11:29 Basophils % 0.1 % (0.0-2.0) 05/23/17 11:29 Neutrophils (Manual) 84 % (40-80) H 05/22/17 03:15 Lymphocytes 3 % (20-50) L 05/22/17 03:15 Platelet Estimate ADEQUATE (NORMAL) 05/22/17 03:15 Sodium 139 mEq/L (136-145) 05/24/17 04:05 Potassium 3.6 mEq/L (3.5-5.1) 05/24/17 04:05 Chloride 106 mEq/L (98-107) 05/24/17 04:05 Carbon Dioxide 26.3 mEq/L (21.0-31.0) 05/24/17 04:05 Anion Gap 10.3 (7.0-16.0) 05/24/17 04:05 BUN 5 mg/dL (7-25) L 05/24/17 04:05 Creatinine 0.9 mg/dL (0.7-1.3) 05/24/17 04:05 Est GFR ( Amer) > 60.0 ml/min (>90) 05/24/17 04:05 Est GFR (Non-Af Amer) > 60.0 ml/min 05/24/17 04:05 BUN/Creatinine Ratio 5.6 05/24/17 04:05 Glucose 101 mg/dL (70-105) 05/24/17 04:05 Hemoglobin A1c % 6.2 % (4.0-6.0) H 05/23/17 11:29 Whole Bld Lactic Acid 2.65 mmol/L (0.60-1.99) H* 05/22/17 06:00 Uric Acid 6.9 mg/dL (4.4-7.6) 05/24/17 04:05 Calcium 8.8 mg/dL (8.6-10.3) 05/24/17 04:05 Magnesium 1.7 mg/dL (1.9-2.7) L 05/24/17 04:05 Total Bilirubin 0.5 mg/dL (0.3-1.0) 05/24/17 04:05 AST 26 U/L (13-39) 05/24/17 04:05 ALT 34 U/L (7-52) 05/24/17 04:05 Alkaline Phosphatase 43 U/L (34-104) 05/24/17 04:05 Total Protein 6.5 gm/dL (6.0-8.3) 05/24/17 04:05 Albumin 3.5 gm/dL (4.2-5.5) L 05/24/17 04:05 Globulin 3.0 gm/dL 05/24/17 04:05 Albumin/Globulin Ratio 1.2 (1.0-1.8) 05/24/17 04:05 Lipase 19 U/L (11-82) 03/22/18 03:15 Urine Source MIDSTREAM 05/22/17 03:20 Urine Color YELLOW 05/22/17 03:20 Urine Clarity CLEAR (CLEAR) 05/22/17 03:20 Urine pH 6.5 (4.6 - 8.0) 05/22/17 03:20 Ur Specific [place] 1.010 (1.005-1.030) 05/22/17 03:20 Urine Protein NEGATIVE mg/dL (NEGATIVE) 05/22/17 03:20 Urine Glucose (UA) NEGATIVE mg/dL (NEGATIVE) 05/22/17 03:20 Urine Ketones 15 mg/dL (NEGATIVE) H 05/22/17 03:20 Urine Blood LARGE (NEGATIVE) H 05/22/17 03:20 Urine Nitrate NEGATIVE (NEGATIVE) 05/22/17 03:20 Urine Bilirubin NEGATIVE (NEGATIVE) 05/22/17 03:20 Urine Urobilinogen 0.2 E.U./dL (0.2 - 1.0) 05/22/17 03:20 Ur Leukocyte Esterase NEGATIVE (NEGATIVE) 05/22/17 03:20 Urine RBC 5-10 /hpf (0-5) H 05/22/17 03:20 Urine WBC 0-2 /hpf (0-5) 05/22/17 03:20 Ur Epithelial Cells RARE /lpf (FEW) 05/22/17 03:20 Urine Bacteria NONE SEEN /hpf (NONE SEEN) 05/22/17 03:20 Stool Leukocyte NO WBC SEEN 05/22/17 07:15 - Physical Exam Vitals and I&O: Vital Signs Temp 97.8 F 05/24/17 04:00 Pulse 78 05/24/17 04:00 Resp 16 05/24/17 04:00 BP 129/86 05/24/17 04:00 Pulse Ox 97 05/24/17 04:00 Intake & Output 05/23/17 05/24/17 05/24/17 18:59 06:59 18:59 Intake Total 3600 700 Output Total 3210 1650 Balance 390 -950 Weight (lbs) 114.759 kg 114.441 kg Intake: Intake, IV Amount 100 200 metroNIDAZOLE 500mg/NS 100 200 100mL 500 mg In 100 ml @ 100 mls/hr IV Q8HR [facility] Rx #:[id number] Oral 3500 500 Output: Urine 3210 1650 Other: # Bowel Movements 1 Stool Characteristics Liquid Soft Brown Brown Weight Source Bedscale Bedscale Active Medications: Current Medications Acetaminophen (Tylenol) 650 mg PO Q4H PRN PRN Reason: Pain or Fever >101 Stop: 07/21/17 06:14 Colchicine (Colcrys) 0.6 mg PO DAILY [facility] Stop: 07/22/17 13:29 Last Admin: 05/23/17 13:02 Dose: 0.6 mg Dextrose/Sodium Chloride (D5-0.9%Ns) 1,000 mls @ 125 mls/hr IV .Q8H [facility] Stop: 07/21/17 06:14 Last Admin: 05/22/17 20:58 Dose: 125 mls/hr Metronidazole (Flagyl) 500 mg in 100 mls @ 100 mls/hr IV Q8HR [facility] Stop: 07/21/17 12:59 Last Infusion: 05/24/17 05:26 Dose: Infused Magnesium Sulfate (Magnesium Sulfate Premix) 2 gm in 50 mls @ 25 mls/hr IV X1 ONE Stop: 05/24/17 10:40 Lactobacillus Rhamnosus (Culturelle 15b) 1 each PO DAILY [facility] Stop: 07/22/17 08:59 Last Admin: 05/23/17 09:13 Dose: 1 each Levofloxacin (Levaquin) 500 mg PO DAILY [facility] Stop: 07/22/17 08:59 Last Admin: 05/23/17 09:12 Dose: 500 mg Miscellaneous (Probiotic Screen) 1 ea MC PRN PRN PRN Reason: PROTOCOL Stop: 07/21/17 11:59 Morphine Sulfate (Morphine) 2 mg IVP Q3HR PRN PRN Reason: Severe Pain Stop: 07/21/17 11:06 Last Admin: 05/22/17 20:53 Dose: 2 mg Ondansetron HCl (Zofran) 4 mg IV Q4H PRN PRN Reason: Nausea Stop: 07/21/17 06:14 Last Admin: 05/22/17 20:54 Dose: 4 mg Pantoprazole Sodium (Protonix) 40 mg PO DAILY [facility] Stop: 07/21/17 08:59 Last Admin: 05/23/17 09:13 Dose: 40 mg Temazepam (Restoril) 15 mg PO HS PRN; Protocol PRN Reason: Insomnia Stop: 07/21/17 06:03 General: Alert, Oriented x3 HEENT: Atraumatic Neck: Supple Cardiovascular: Regular rate Lungs: Clear to auscultation Abdomen: Bowel sounds, Soft, no Tender, no Distended Extremities: no Edema Assessment/Plan - Assessment Assessment: Assessment: # Enteritis # Nausea/vomiting # Diarrhea Likely infectious source, slowly improving symptomatically. Plan: - cont abx, will need 7-10 day course - Oral diet as tolerated. - f/u stool cultures, shiga is negative thus far - GI peace stable.
[2017-05-24] MEDS: Pantoprazole 40 mg EC Tab PO SCH (09:08)
[2017-05-24] MEDS: Lactobacillus Rhamnosus GG 15 Billion CFU CAP.SPRINK PO SCH (09:08)
--- NOTE | 2017-05-24 18:14 | Discharge Summary ---
DATE OF DISCHARGE: 05/24/2017 HOSPITAL COURSE: This is a 31-year-old Citizen Of [place], past medical history of gout, who came in because of nausea and vomiting as well as watery diarrhea. His temperature was 101.3 with a white count of 11.9 and lactic acid of 3.04. CT scan of the abdomen revealed inflammatory/enteritis. He was initiated on IV hydration, antiemetics as well as Zosyn and Flagyl. He was seen by ID. His Zosyn was switched to Levaquin. He was also evaluated by GI who agreed with Levaquin. Stool Giardia, ova and parasites as well as Shiga toxin 1 and 2 were all negative. Blood culture x2 were also negative. His nausea and vomiting resolved. His diet was advanced. He had 1 bowel movement, which has been semi-formed. He is stable to be discharged to home. PAST MEDICAL HISTORY: 1. Questionable history of gout. 2. Renal calculi. PHYSICAL EXAMINATION: GENERAL: The patient is alert, verbal, comfortable, not in distress. VITAL SIGNS: Temperature 97.6, pulse 82, blood pressure 118/86. SKIN: Good turgor, warm, no rash or jaundice appreciated. HEENT: Head normocephalic, atraumatic. Eyes: Extraocular muscles intact. Pupils equal, round, reactive to light and accommodates. Anicteric sclerae. [place] conjunctivae. Nose, midline nasal septum. Mouth, moist mucosa with adequate dentition. NECK: Supple. No adenopathy, no thyromegaly, no bruits. Trachea palpated in the midline. CHEST AND CARDIOVASCULAR: S1, S2. No rub, murmur, nor gallop appreciated. Point of maximal impulse fifth intercostal space, left midclavicular line. ABDOMEN: No abdominal or femoral bruits appreciated. LUNGS: Equal expansion. No use of accessory muscles. No supraclavicular retractions. Decreased breath sounds, clear to auscultation without any wheeze. Abdomen is globular, soft. Positive for bowel sounds. No bruits either diastolic or systolic. RECTAL: The patient refused. GENITOURINARY: Normal appearing male genitalia. MUSCULOSKELETAL: No effusions present in his joints with adequate range of motion. EXTREMITIES: No evidence of edema, cyanosis, nor clubbing with palpable femoral, popliteal, and dorsalis pedis pulses. NEUROLOGIC: The patient is alert, verbal, motor is 5/5. Cranial nerves III through XII intact. Sensory intact. IMPRESSION: 1. Acute gastroenteritis (infectious in the form of viral/bacterial), which is now resolving. 2. Nonalcoholic fatty liver disease. 3. Incidental finding of right lung granuloma. 4. History of renal calculi. PLAN: 1. Continue on with Levaquin for 5 more days. 2. Instructed to drink lots of fluid. JOB# [id number]
== END 2017-05-24 15:30 | disposition home or self-care (01) | DRG 872 ==
LOC: ER 02:44 → ICU 05:55 → EEVIPCON 05:55 → ICU 07:02
PROVIDERS: ADMIT Internal Medicine; ATTEND Internal Medicine
DX: A41.9 Sepsis, unspecified organism (principal); J84.10 Pulmonary fibrosis, unspecified; K76.0 Fatty (change of) liver, not elsewhere classified; Z68.41 Body mass index [BMI] 40.0-44.9, adult; E86.0 Dehydration; E66.9 Obesity, unspecified; M19.90 Unspecified osteoarthritis, unspecified site; K52.9 Noninfective gastroenteritis and colitis, unspecified; K29.70 Gastritis, unspecified, without bleeding; R31.9 Hematuria, unspecified; M10.9 Gout, unspecified
CPT/HCPCS: 36415-UA; 80053-TC; 81001-TC; 83036-90; 83605; 83690-TC; 83735-TC; 84550-TC; 85007-TC; 85025-TC; 85027-TC; 87046-90; 87209-90; 87230-TC; 87329-90; 89055-TC; 90799; 93005; J0696; J1170; J2405; J2543; J3475; J7030; J7042; Z7610

== ENCOUNTER 2017-08-13 20:05 | Outpatient (CLI) | payer OTHER ==
[2017-08-13 20:35] LABS: % BASOPHILS 0.5 % (0.0-2.0); % EOSINOPHILS 2.7 % (0.0-5.0); % LYMPHOCYTES 26.5 % (20.0-50.0); % NEUTROPHILS 64.3 % (40.0-80.0); BASOPHILE ABSOLUTE 0.1 Th/cumm (0-0.2); EOSINOPHILE ABSOLUTE 0.3 Th/cmm (0.1-0.4); HEMATOCRIT 44.2 % (41.0-60); HEMOGLOBIN 14.6 gm/dL (12-16); LYMPHOCYTE ABSOLUTE 3.1 Th/cmm (1.5-3.0); MEAN CELL VOLUME 86.2 fl (80-99); MEAN CORPUSCULAR HEMOGLOBIN 28.5 pg (26.0-30.0); MEAN CORPUSCULAR HGB CONC 33.1 pg (28.0-36.0); MEAN PLATELET VOLUME 8.9 fl; MONOCYTE ABSOLUTE 0.7 Th/cmm (0.3-1.0); NEUTROPHILE ABSOLUTE 7.5 Th/cmm (1.8-8.0); PLATELET COUNT 275 Th/cmm (150-400); RED BLOOD COUNT 5.13 Mil/cmm (4.30-5.70); RED CELL DISTRIBUTION WIDTH 13.6 % (11.5-20.0); WHITE BLOOD COUNT 11.7 Th/cmm (4.8-10.8)
[2017-08-13 20:54] LABS: ALB/GLOB RATIO 1.2 (1.0-1.8); ALBUMIN 4.3 gm/dL (4.2-5.5); ALKALINE PHOSPHATASE 78 U/L (34-104); ANION GAP 12.5 (7.0-16.0); BILIRUBIN,TOTAL 0.4 mg/dL (0.3-1.0); BUN - UREA NITROGEN 12 mg/dL (7-25); CALCIUM SERUM 9.3 mg/dL (8.6-10.3); CARBON DIOXIDE 23.3 mEq/L (21.0-31.0); CHLORIDE 102 mEq/L (98-107); GFR AFRICAN-AMERICAN > 60.0 ml/min (>90); GFR NON AFRICAN-AMERICAN > 60.0 ml/min; GLUCOSE 95 mg/dL (70-105); MAGNESIUM 2.2 mg/dL (1.9-2.7); PHOSPHOROUS 3.1 mg/dL (2.5-5.0); POTASSIUM SERUM 3.8 mEq/L (3.5-5.1); SGOT 19 U/L (13-39); SGPT/ALT 29 U/L (7-52); SODIUM SERUM 134 mEq/L (136-145); URIC ACID 5.6 mg/dL (4.4-7.6)
== END 2017-08-13 20:26 | disposition home or self-care (01) ==
LOC: LAB 20:05
PROVIDERS: ATTEND Internal Medicine
DX: M10.9 Gout, unspecified (principal)
CPT/HCPCS: 36415-UA; 80053-TC; 83735-TC; 84100-TC; 84550-TC; 85025-TC